=== PATIENT | female | born 1980 | race Caucasian/White ===

== ENCOUNTER → 2016-06-28 | Outpatient (CLI) | payer BC | LOC: RAD 10:06 | PROVIDERS: ATTEND Physician Assistant | DX: R94.5 Abnormal results of liver function studies (principal); K76.0 Fatty (change of) liver, not elsewhere classified | CPT/HCPCS: 76705 ==

== ENCOUNTER 2019-04-05 04:39 | Emergency (ER) | payer BC ==
[2019-04-05] MEDS ORDERED: PSEUDOEPHEDRINE HCL 30 MG TABLET PO ONE (07:07)
[2019-04-05 07:25] VITALS: BP 125/73
--- NOTE | 2019-04-12 09:49 | ER Document Report ---
Entered by CUCO SETHI SCRIBE 04/05/19 0655 Acting as scribe for:DARRYL RANKIN MD ED ENT - General Chief Complaint: Ear Pain Stated Complaint: RIGHT EAR PAIN Time Seen by Provider: 04/05/19 06:54 Primary Care Provider: VANITA WOODRUFF MD [Primary Care Provider] - Follow up as needed Mode of Arrival: Ambulatory Information source: Patient Notes: This 38 year old female patient presents to the emergency department today with complaints of right ear pain for the last two days. Patient denies any nasal congestion, trauma, or ear drainage. TRAVEL OUTSIDE OF THE [place] IN LAST 30 DAYS: No - Related Data Allergies/Adverse Reactions: ciprofloxacin [From Cipro] Allergy (Intermediate, Verified 04/05/19 05:14) blisters in mouth ciprofloxacin HCl [From Cipro] Allergy (Verified 04/05/19 05:14) Past Medical History - General Information source: Patient - Social History Smoking Status: Former Smoker Cigarette use (# per day): No Frequency of alcohol use: None Drug Abuse: None Lives with: Family Family History: Arthritis, CAD, DM, Hyperlipidemia, Hypertension Patient has suicidal ideation: No Patient has homicidal ideation: No - Past Medical History Cardiac Medical History: Reports: Hx Hypercholesterolemia Endocrine Medical History: Reports: Hx Diabetes Mellitus Type 2 GI Medical History: Reports: Hx Gastroesophageal Reflux Disease Past Surgical History: Reports: Hx Section, Hx Oral Surgery, Hx Tubal Ligation - Immunizations Immunizations up to date: Yes Hx Diphtheria, Pertussis, Tetanus Vaccination: Yes Review of Systems - Review of Systems Constitutional: No symptoms reported EENT: See HPI, Ear pain - right. denies: Ear discharge, Nose congestion Cardiovascular: No symptoms reported Respiratory: No symptoms reported Gastrointestinal: No symptoms reported Genitourinary: No symptoms reported Female Genitourinary: No symptoms reported Musculoskeletal: No symptoms reported Skin: No symptoms reported Hematologic/Lymphatic: No symptoms reported Neurological/Psychological: No symptoms reported -: Yes All other systems reviewed and negative Physical Exam - Vital signs Vitals: Temp Pulse Resp BP Pulse Ox 98.1 F 103 H 16 138/79 H 97 04/05/19 04:40 04/05/19 04:40 04/05/19 04:40 04/05/19 04:40 04/05/19 04:40 - Notes Notes: Physical Exam: General: Alert, appears well. HEENT: Normocephalic. Atraumatic. PERRLA. Extraocular movements intact. Oropharynx clear. Left pars flaccida is bulging, right pars flaccida is minimally bulging. TMs are pink bilaterally. Neck: Supple. Respiratory: No respiratory distress. Abdominal: Morbidly obese. No distension. Extremities: Moves all four extremities. Neurological: Normal cognition. AAOx4. Normal speech. Psychological: Normal affect. Normal Mood. Skin: Warm. Dry. Normal color. Course - Vital Signs Vital signs: Temp Pulse Resp BP Pulse Ox 98.0 F 92 16 125/73 100 04/05/19 07:23 04/05/19 07:23 04/05/19 07:23 04/05/19 07:23 04/05/19 07:23 Discharge - Discharge Clinical Impression: Earache symptoms in both ears Eustachian tube dysfunction Qualifiers: Laterality: bilateral Qualified Code(s): H69.83 - Other specified disorders of Eustachian tube, bilateral Condition: Stable Disposition: HOME, SELF-CARE Additional Instructions: The pain and pressure in your ears is due to the eustachian tubes swelling closed and not allowing the middle ear to drain. Sudafed will usually help open up the tubes and relieve the pressure in the ears. You can also try using Afrin nose spray if the Sudafed does not work in a few hours. Follow-up with your primary care provider if not improving. Prescriptions: Pseudoephedrine HCl [Sudafed 30 mg Tablet] 30 mg PO Q6 PRN #15 tablet PRN Reason: Referrals: VANITA WOODRUFF MD [Primary Care Provider] - Follow up as needed Scribe Attestation: 04/05/19 07:11 I personally performed the services described in the documentation, reviewed and edited the documentation which was dictated to the scribe in my presence, and it accurately records my words and actions. I personally performed the services described in the documentation, reviewed and edited the documentation which was dictated to the scribe in my presence, and it accurately records my words and actions.
== END 2019-04-05 07:32 | disposition home or self-care (01) ==
LOC: ER 04:39
DX: H69.93 Unspecified Eustachian tube disorder, bilateral (principal); E11.9 Type 2 diabetes mellitus without complications; Z88.1 Allergy status to other antibiotic agents; Z87.891 Personal history of nicotine dependence
CPT/HCPCS: 99282